=== PATIENT | female | born 1930 | race Caucasian/White ===

== ENCOUNTER 2017-03-06 18:17 | Emergency (ER) | payer MEDICARE, OTHER ==
[~2017-03-06] VITALS: Ht 167.6 cm; Wt 81.4 kg
[~2017-03-06 18:17] MED LIST: ATENOLOL50 MG PO; FISH OIL500 M1 PO; LISINOPRIL20 MG PO
[2017-03-06] MEDS ORDERED: CALCIUM CHANNEL BLOC PO (19:24)
[2017-03-06] MEDS ORDERED: CIPRO250 M1 PO (20:19)
[2017-03-06 20:40] VITALS: BP 148/75
== END 2017-03-06 20:40 | disposition home or self-care (01) ==
LOC: ED 18:17
DX: N39.0 Urinary tract infection, site not specified (principal); E87.1 Hypo-osmolality and hyponatremia; E86.0 Dehydration; I10 Essential (primary) hypertension

== ENCOUNTER 2017-03-09 09:06 | Emergency (ER) | payer MEDICARE, OTHER ==
[~2017-03-09] VITALS: Ht 167.6 cm; Wt 82.0 kg
[~2017-03-09 09:06] MED LIST changes: +CALCIUM CHANNEL BLOC PO; +CIPRO250 M1 PO
[2017-03-09] MEDS ORDERED: AMLODIPINE BESY10 MG PO (09:17)
[2017-03-09] MEDS ORDERED: MUPIROCIN CALCIUM2% TP (11:57)
[2017-03-09 12:06] VITALS: BP 133/68
[2017-03-10] MEDS ORDERED: NORCO 325 MG-51 TA1 PO (09:14)
== END 2017-03-09 12:13 | disposition home or self-care (01) ==
LOC: ED 09:06
DX: R07.9 Chest pain, unspecified (principal); R06.00 Dyspnea, unspecified; N39.0 Urinary tract infection, site not specified; L03.116 Cellulitis of left lower limb; I10 Essential (primary) hypertension; E11.9 Type 2 diabetes mellitus without complications; S80.812A Abrasion, left lower leg, initial encounter; X58.XXXA Exposure to other specified factors, initial encounter

== ENCOUNTER 2017-03-10 08:53 | Emergency (ER) | payer MEDICARE, OTHER ==
[~2017-03-10] VITALS: Ht 167.6 cm; Wt 79.5 kg
[~2017-03-10 08:53] MED LIST changes: +AMLODIPINE BESY10 MG PO; +MUPIROCIN CALCIUM2% TP
[2017-03-10] MEDS ORDERED: NORCO 325 MG-51 TA1 PO (09:14)
[2017-03-10 11:20] VITALS: BP 117/54
== END 2017-03-10 11:10 | disposition short-term general hospital (02) ==
LOC: ED 08:53
DX: I48.91 Unspecified atrial fibrillation (principal); R07.9 Chest pain, unspecified; R42 Dizziness and giddiness; R06.00 Dyspnea, unspecified; E11.9 Type 2 diabetes mellitus without complications; I10 Essential (primary) hypertension
CPT/HCPCS: J1940

== ENCOUNTER → 2017-03-16 | Outpatient (CLI) | payer MEDICARE, OTHER ==
[2017-03-10 11:20] VITALS: BP 117/54
[~2017-03-16] MED LIST changes: +NORCO 325 MG-51 TA1 PO
== END ==
LOC: LAB 15:26
DX: Z51.81 Encounter for therapeutic drug level monitoring (principal); Z79.01 Long term (current) use of anticoagulants; I48.0 Paroxysmal atrial fibrillation

== ENCOUNTER → 2018-09-28 | Outpatient (CLI) | payer MEDICARE, OTHER | LOC: RAD 07:58 | DX: I71.4 Abdominal aortic aneurysm, without rupture (principal) ==

== ENCOUNTER → 2019-10-02 | Outpatient (CLI) | payer MEDICARE, OTHER | LOC: RAD 09:00 | DX: I71.4 Abdominal aortic aneurysm, without rupture (principal) ==

== ENCOUNTER 2020-04-28 14:10 | Outpatient (RCR) | payer MEDICARE, OTHER | END 2020-04-28 15:00 | disposition still patient (30) | LOC: PT 14:10 | DX: M54.5 Low back pain (principal); M25.511 Pain in right shoulder ==